=== PATIENT | female | born 1955 | race African-American/Black ===

== ENCOUNTER 2017-04-27 13:38 | Emergency (ER) | payer SELFPAY ==
[2017-04-27 13:44] VITALS: BP 141/86; PULSE 84; TEMP 97.9; BMI 35.6
[2017-04-27] MEDS ORDERED: ALBUTEROL SO4 2.5/IPRATROPIUM 0.5 INH SOL 3 ML VIAL.NEB. NEB ONE ×2 (14:43→14:49)
[2017-04-27] MEDS ORDERED: predniSONE 20 MG TABLET (UD) PO ONE (14:43)
[2017-04-27] MEDS ORDERED: predniSONE 20 MG TABLET (UD) ONE (14:49)
--- NOTE | 2017-04-27 15:06 | PDOC ---
History of Present Illness - General Chief Complaint: Cold Symptoms Stated Complaint: CHEST PAIN WHEN COUGH SINCE SEPT Time Seen by Provider: 04/27/17 14:16 History Source: Patient Exam Limitations: No Limitations - History of Present Illness Initial Comments: 04/27/17 15:00 Patient came with complaints of persistent cough for the past 3 months. States had demolition of her bathroom due to mold and since that time has been coughing. Denies phlegm production but feels some shortness of breath and some wheezing. Has used [id number] medications and home remedies with minimal resolved. Patient states does not have insurance therefore has not sought any medical attention. Denies fever, denies any headache earache or sore throat. Has no history of asthma. Quit smoking 25 years ago. No one else in the house is ill. And progressively worsening as she has been coughing for such a long period of time. Timing/Duration: reports: getting worse Severity: reports: mild, moderate Associated Symptoms: reports: facial pain, fever/chills, nasal congestion Past History - Travel Traveled outside of the country in the last 30 days: No Close contact w/someone who was outside of country & ill: No - Past Medical History Allergies/Adverse Reactions: Allergies Allergy/AdvReac Type Severity Reaction Status Date / Time No Known Allergies Allergy Verified 04/27/17 13:43 Home Medications: Ambulatory Orders Albuterol Sulfate [Proair Respiclick] 90 mcg IH Q6H PRN #1 aer.pow.ba 04/27/17 Prednisone [Deltasone -] 20 mg PO BID #8 tablet 04/27/17 COPD: No Liver Disease: Yes (HEP C) - Surgical History Abdominal Surgery: Yes (TUMORS FROM COLON) - Suicide/Smoking/Psychosocial Hx Smoking History: Never smoked Information on smoking cessation initiated: No Hx Alcohol Use: No Drug/Substance Use Hx: No Substance Use Type: None Review of Systems - Review of Systems Able to Perform ROS?: Yes Is the patient limited Ethiopian proficient: Yes Constitutional: Yes: Symptoms Reported, See HPI, Malaise HEENTM: Yes: See HPI. No: Symptoms Reported, Throat Swelling Respiratory: Yes: Symptoms reported, See HPI, Cough, Shortness of Breath, Wheezing ABD/GI: Yes: See HPI. No: Symptoms Reported Musculoskeletal: Yes: Symptoms Reported Neurological: Yes: See HPI. No: Symptoms reported, Headache All Other Systems: Reviewed and Negative *Physical Exam - Vital Signs Last Vital Signs Temp Pulse Resp BP Pulse Ox 97.9 F 84 18 141/86 97 04/27/17 13:40 04/27/17 13:40 04/27/17 13:40 04/27/17 13:40 04/27/17 13:40 - Physical Exam General Appearance: Yes: Nourished, Appropriately Dressed, Apparent Distress, Mild Distress HEENT: positive: DESMOND, TMs Normal, Pharynx Normal Neck: positive: Supple. negative: Tender Respiratory/Chest: positive: Wheezing (coarse insp and exp BS ). negative: Chest Tender, Lungs Clear, Normal Breath Sounds, Respiratory Distress Cardiovascular: positive: Regular Rhythm Gastrointestinal/Abdominal: positive: Soft. negative: Normal Bowel Sounds, Tender Extremity: positive: Normal Capillary Refill, Normal Inspection Integumentary: positive: Normal Color, Dry, Warm, Pale Neurologic: positive: camp recreation specialist II-XII NML intact, Fully Oriented, Alert, Normal Mood/ Affect, Normal Response, Motor Strength / ED Treatment Course - Medications Given in the ED: ED Medications Discontinued Medications Generic Name Dose Route Start Last Admin Trade Name Freq PRN Reason Stop Dose Admin Albuterol/Ipratropium 1 amp 04/27/17 14:43 04/27/17 14:51 Duoneb - NEB 04/27/17 14:44 1 amp ONCE ONE Administration Prednisone 60 mg 04/27/17 14:43 04/27/17 14:51 Deltasone - PO 04/27/17 14:44 60 mg ONCE ONE Administration Progress Note - Progress Note Progress Note: Reactive airway disease, probably environmental from home. Much improved after 1 DuoNeb and prednisone. We'll continue and have follow-up with PMD *DC/Admit/Observation/Transfer Diagnosis at time of Disposition: Reactive airway disease with wheezing Qualifiers: Asthma severity: mild Asthma persistence: intermittent Asthma complication type : uncomplicated Qualified Code(s): J45.20 - Mild intermittent asthma, uncomplicated - Discharge Dispostion Disposition: HOME Condition at time of disposition: Stable Admit: No - Prescriptions Prescriptions: Albuterol Sulfate [Proair Respiclick] 90 mcg IH Q6H PRN #1 aer.pow.ba PRN Reason: Wheezing Prednisone [Deltasone -] 20 mg PO BID #8 tablet - Referrals Referrals: [facility] [Provider Group] - Patient Instructions Printed Discharge Instructions: DI for Reactive Airway Disease-Adult Additional Instructions: Rest, drink lots of fluids: Teas, water, soups, Pedialyte Saltwater gargles Steamy showers/seem to face break up mucus Avoid contact with others until fevers and cough resolved Lots of handwashing and good hygiene Continue [id number] medications for symptomatic relief Tylenol or Motrin for fever and pain Continue albuterol nebulizers every 4-6 hours for the next 2 days then as needed for continued cough Prednisone as directed until completed Consider antihistamines daily Have bathroom evaluated for mold and other allergens Followup with private physician in one to 2 days Return to emergency department / pediatric hospital for worsened symptoms, fevers, dehydration - Post Discharge Activity
--- NOTE | 2017-05-13 13:26 | EKG ---
Test Reason : Blood Pressure : / mmHG Vent. Rate : 086 BPM Atrial Rate : 086 BPM P-R Int : 144 ms QRS Dur : 066 ms QT Int : 344 ms P-R-T Axes : 073 023 041 degrees QTc Int : 411 ms NORMAL SINUS RHYTHM NORMAL ECG WHEN COMPARED WITH ECG OF 02-APR-2011 11:49, NO SIGNIFICANT CHANGE WAS FOUND Confirmed by BRENNON THOMAS MD ([id number]) on 05/13/2017 1:25:39 PM Referred By: Confirmed By:BRENNON THOMAS MD
== END 2017-04-27 15:22 | disposition home or self-care (01) ==
LOC: JERFT 13:38
PROC: 3E0F7GC Introduction of Other Therapeutic Substance into Respiratory Tract, Via Natural or Artificial Opening (ICD-10-PCS; principal; 2017-04-27)
DX: J45.20 Mild intermittent asthma, uncomplicated (principal)
CPT/HCPCS: 93005; 93010; 99281-25

== ENCOUNTER 2019-06-19 03:57 | Emergency (ER) | payer OTHER ==
[2019-06-19] MEDS ORDERED: ALBUTEROL SO4 2.5/IPRATROPIUM 0.5 INH SOL 3 ML VIAL.NEB. NEB ONE ×2 (05:07→05:20)
[2019-06-19 05:30] VITALS: BMI 35.9
--- NOTE | 2019-06-19 05:59 | PDOC ---
History of Present Illness - General Chief Complaint: Cold Symptoms Stated Complaint: SOB/SINUS CONGESTION Time Seen by Provider: 06/19/19 04:35 - History of Present Illness Initial Comments: HPI: 63yo F with no reported PMH presenting with shortness of breath. Patient states she has had congestion for the past month. Despite being evaluated at two urgent care visits, she continues to have no improvement in her symptoms. Patient has tried flonase, sudafed, Tavares's, and nyquil- none of which help. The only thing that helps her congestion is the mist from a hot shower, but this effect is short-lived. Patient reports that she is unable to lay flat due to her congestion and also complains of chest pressure from her difficulty breathing. Was given a course of Augmentin last week of which she only took three days. No fevers, but endorses chills. PCP: Dr. Wallace ROS: Constitutional: no fever, +chills HEENT: no throat pain, no dysphagia Cardiovascular: +chest pain, no palpitations Respiratory: +cough, +shortness of breath Gastrointestinal: no abdominal pain, no nausea Genitourinary: no dysuria, no hematuria Musculoskeletal: no myalgia, no arthralgia Skin: no rash, no itching Neurologic: no headache, no weakness Psych: no agitation, no anxiety PE: General: Awake, alert, and fully oriented, in no acute distress Head: No signs of trauma Eyes: EOMI, sclera anicteric ENT: Moist mucus membranes, runny nose Neck: Normal ROM, supple Lungs: Lungs clear, Normal breath sounds; upper airway congestion Cardio: Regular rhythm, S1 and S2 present Abdomen: Soft, nontender Extremities: Normal range of motion, Distal pulses present, No calf tenderness SKIN: Warm, Dry, normal turgor Neurologic: Cranial nerves II through XII grossly intact. Normal speech ED Course/MDM: DDX including but not limited to sinusitis, bacterial rhinosinusitis, URI, influenza, ACS, PE, PNA, anemia, metabolic derangement Presentation consistent with viral vs. allergic sinusitis Duoneb Though I have low suspicion for an acute cardiac process, we will obtain basic labs and EKG 06/19/19 05:59 EKG: rate 93, Qtc 450, NSR Pending labs and CXR Patient signed out to Dr. Capone and day team 06/19/19 07:19 Past History - Past Medical History Allergies/Adverse Reactions: Allergies Allergy/AdvReac Type Severity Reaction Status Date / Time No Known Allergies Allergy Verified 06/19/19 04:04 Home Medications: Ambulatory Orders Albuterol Sulfate [Proair Respiclick] 90 mcg IH Q6H PRN #1 aer.pow.ba 04/27/17 predniSONE [Deltasone -] 20 mg PO BID #8 tablet 04/27/17 Guaifenesin [Mucinex -] 600 mg PO BID PRN #14 tablet.er 06/19/19 Levofloxacin [Levaquin] 750 mg PO DAILY #7 tablet 06/19/19 Pseudoephedrine HCl [Sudafed -] 60 mg PO TID #21 tablet 06/19/19 COPD: No Liver Disease: Yes (HEP C) - Surgical History Abdominal Surgery: Yes (TUMORS FROM COLON) - Psycho Social/Smoking Cessation Hx Smoking History: Never smoked Hx Alcohol Use: No Drug/Substance Use Hx: No Substance Use Type: None *Physical Exam - Vital Signs Last Vital Signs Temp Pulse Resp BP Pulse Ox 98.3 F 95 H 20 158/114 H 97 06/19/19 04:15 06/19/19 04:15 06/19/19 04:15 06/19/19 04:15 06/19/19 04:15 ED Treatment Course - LABORATORY CBC & Chemistry Diagram: 06/19/19 06:30 06/19/19 06:30 - Medications Given in the ED: ED Medications Discontinued Medications Generic Name Dose Route Start Last Admin Trade Name Freq PRN Reason Stop Dose Admin Albuterol/Ipratropium 1 amp 06/19/19 05:07 06/19/19 05:29 Duoneb - NEB 06/19/19 05:08 1 amp ONCE ONE Administration Discharge - Discharge Information Problems reviewed: Yes Clinical Impression/Diagnosis: Sinusitis Qualifiers: Sinusitis location: unspecified location Chronicity: acute Recurrence: non- recurrent Qualified Code(s): J01.90 - Acute sinusitis, unspecified - Additional Discharge Information Prescriptions: Guaifenesin [Mucinex -] 600 mg PO BID PRN #14 tablet.er PRN Reason: Nasal Congestion Levofloxacin [Levaquin] 750 mg PO DAILY #7 tablet Pseudoephedrine HCl [Sudafed -] 60 mg PO TID #21 tablet - Follow up/Referral - Patient Discharge Instructions Patient Printed Discharge Instructions: DI for Sinusitis Additional Instructions: You were seen in the emergency department for congestion and shortness of breath. Blood work, EKG, and Xray were normal. You received a breathing treatment. Follow-up with your primary care provider within 72 hours to discuss this ED visit and to further evaluate your symptoms. Call today or tomorrow morning and make an appointment. Your workup is not complete until you do so. We sent prescriptions to your pharmacy. Take as instructed. You can also use an ndci-zry-wuyebry netipot to help with your sinuses. Immediate medical attention is required if: you pass out, have any chest pain, shortness of breath, severe headaches, changes in vision, focal numbness or weakness, any severe abdominal pain, any black tarry stool, or any new or concerning symptoms. If you think you are having an emergency, call for emergency medical services or present to the emergency department right away. - Post Discharge Activity
--- NOTE | 2019-06-19 07:01 | PDOC ---
*Physical Exam - Vital Signs Last Vital Signs Temp Pulse Resp BP Pulse Ox 98.3 F 95 H 20 158/114 H 97 06/19/19 04:15 06/19/19 04:15 06/19/19 04:15 06/19/19 04:15 06/19/19 04:15 ED Treatment Course - LABORATORY CBC & Chemistry Diagram: 06/19/19 06:30 06/19/19 06:30 - Medications Given in the ED: ED Medications Discontinued Medications Generic Name Dose Route Start Last Admin Trade Name Freq PRN Reason Stop Dose Admin Albuterol/Ipratropium 1 amp 06/19/19 05:07 06/19/19 05:29 Duoneb - NEB 06/19/19 05:08 1 amp ONCE ONE Administration Medical Decision Making - Medical Decision Making 06/19/19 07:00 Pt received on s/o from Dr. Blake. 63F presenting with shortness of breath. Likely upper airway. F/u labs, ekg, cxr. Given augmentin at urgent care. Plan to d/c home with levaquin and mucinex for sinusitis pending work up. 06/19/19 08:34 EKG shows NSR, 93 bpm, no ST elevation, QTc 450. 06/19/19 08:35 Labs reviewed. Laboratory Last Values WBC 7.3 K/mm3 (4.0-10.0) 06/19/19 06:30 RBC 5.18 M/mm3 (3.60-5.2) 06/19/19 06:30 Hgb 14.1 GM/dL (10.7-15.3) 06/19/19 06:30 Hct 42.4 % (32.4-45.2) 06/19/19 06:30 MCV 82.0 fl (80-96) 06/19/19 06:30 MCH 27.3 pg (25.7-33.7) 06/19/19 06:30 MCHC 33.3 g/dl (32.0-36.0) 06/19/19 06:30 RDW 15.0 % (11.6-15.6) 06/19/19 06:30 Plt Count 265 K/MM3 (134-434) 06/19/19 06:30 MPV 8.6 fl (7.5-11.1) 06/19/19 06:30 Absolute Neuts (auto) 4.2 K/mm3 (1.5-8.0) 06/19/19 06:30 Neutrophils % 57.3 % (42.8-82.8) 06/19/19 06:30 Lymphocytes % 30.9 % (8-40) 06/19/19 06:30 Monocytes % 7.0 % (3.8-10.2) 06/19/19 06:30 Eosinophils % 4.5 % (0-4.5) 06/19/19 06:30 Basophils % 0.3 % (0-2.0) 06/19/19 06:30 Nucleated RBC % 0 % (0-0) 06/19/19 06:30 Sodium 141 mmol/L (136-145) 06/19/19 06:30 Potassium 4.0 mmol/L (3.5-5.1) 06/19/19 06:30 Chloride 104 mmol/L (98-107) 06/19/19 06:30 Carbon Dioxide 31 mmol/L (21-32) 06/19/19 06:30 Anion Gap 6 MMOL/L (8-16) L 06/19/19 06:30 BUN 10.3 mg/dL (7-18) 06/19/19 06:30 Creatinine 0.8 mg/dL (0.55-1.3) 06/19/19 06:30 Est GFR (CKD-EPI)AfAm 90.30 06/19/19 06:30 Est GFR (CKD-EPI)NonAf 77.91 06/19/19 06:30 Random Glucose 117 mg/dL (74-106) H 06/19/19 06:30 Calcium 8.9 mg/dL (8.5-10.1) 06/19/19 06:30 Total Bilirubin 0.4 mg/dL (0.2-1) 06/19/19 06:30 AST 37 U/L (15-37) 06/19/19 06:30 ALT 38 U/L (13-61) 06/19/19 06:30 Alkaline Phosphatase 91 U/L (45-117) 06/19/19 06:30 Creatine Kinase 170 U/L (26-192) 06/19/19 06:30 Creatine Kinase Index 1.1 % (0.0-5.0) 06/19/19 06:30 CK-MB (CK-2) 1.9 ng/mL (0.5-3.6) 06/19/19 06:30 Troponin I 0.03 ng/ml (0.00-0.05) 06/19/19 06:30 Total Protein 8.6 g/dl (6.4-8.2) H 06/19/19 06:30 Albumin 4.1 g/dl (3.4-5.0) 06/19/19 06:30 Influenza A (Rapid) Negative (Negative) 06/19/19 06:30 Influenza B (Rapid) Negative (Negative) 06/19/19 06:30 06/19/19 08:35 CXR negative. 06/19/19 09:02 Pt reassessed. Lung ott CTAB. Ambulating comfortably. Reports that shortness of breath has resolved but continues to have mild cough and post nasal drip. Plan to d/c home with PCP f/u. All questions answered. Return precautions given. Pt verbalized understanding and agreement with plan. Discharge - Discharge Information Problems reviewed: Yes Clinical Impression/Diagnosis: Sinusitis Qualifiers: Sinusitis location: unspecified location Chronicity: acute Recurrence: non- recurrent Qualified Code(s): J01.90 - Acute sinusitis, unspecified Condition: Stable Disposition: HOME - Admission No - Additional Discharge Information Prescriptions: Benzonatate [Tessalon Pearls -] 100 mg PO TID 7 Days #21 capsule Guaifenesin [Mucinex -] 600 mg PO BID PRN #14 tablet.er PRN Reason: Nasal Congestion Levofloxacin [Levaquin] 750 mg PO DAILY #7 tablet Pseudoephedrine HCl [Sudafed -] 60 mg PO TID #21 tablet - Follow up/Referral Referrals: Johnson Baer MD [Staff Physician] - - Patient Discharge Instructions Patient Printed Discharge Instructions: DI for Sinusitis Additional Instructions: You were seen in the emergency department for congestion and shortness of breath. Blood work, EKG, and Xray were normal. You received a breathing treatment. Follow-up with your primary care provider within 72 hours to discuss this ED visit and to further evaluate your symptoms. Call today or tomorrow morning and make an appointment. Your workup is not complete until you do so. We sent prescriptions to your pharmacy. Take as instructed. You can also use an [id number] netipot to help with your sinuses. Immediate medical attention is required if: you pass out, have any chest pain, shortness of breath, severe headaches, changes in vision, focal numbness or weakness, any severe abdominal pain, any black tarry stool, or any new or concerning symptoms. If you think you are having an emergency, call for emergency medical services or present to the emergency department right away. - Post Discharge Activity
[2019-06-19] MEDS ORDERED: PSEUDOEPHEDRINE HCL 60 MG TABLET PO ONE (07:20)
[2019-06-19] MEDS ORDERED: PSEUDOEPHEDRINE HCL 60 MG TABLET ONE (07:23)
--- NOTE | 2019-06-19 07:26 | PDOC ---
Attending Attestation - Resident Resident Name: Jerilyn Blake - ED Attending Attestation I have performed the following: I have examined & evaluated the patient, The case was reviewed & discussed with the resident, I agree w/resident's findings & plan - HPI HPI: 06/19/19 07:25 congestion and stuffy nose with in abiity to breathe x 1 month. No PMHx and she came last night as she was unable to breathe thru her nouth or her nose and she got really scared. 06/19/19 20:09 Pt is afebrile here and appears well. She comes with a bag filled with OTC meds that are not helping Pt [place] her god-dogs. states that she has a puppy allergy and that she loves those dogs/. Perhaps pt has allergy induced congestion. She is back at home where there are no dogs however. - Physicial Exam PE: 06/19/19 20:11 Agree with resident exam Pt is very congested.. Nasal congesiton. Heart [id number] Lungs CTA B abd soft NT ND neuro intact - Medical Decision Making 06/19/19 20:12 Pt will be signed out to the day ER team. I will rx with pseudoephedrine, as pt has been taking only phenylephrine, which is pretty ineffective.
[2019-06-19 07:34] LABS: BASO % 0.3 % (0-2.0); EOS % 4.5 % (0-4.5); HEMATOCRIT 42.4 % (32.4-45.2); HEMOGLOBIN 14.1 GM/dL (10.7-15.3); LYMPH % 30.9 % (8-40); MCH 27.3 pg (25.7-33.7); MCHC 33.3 g/dl (32.0-36.0); MEAN PLT VOLUME 8.6 fl (7.5-11.1); NEUT % 57.3 % (42.8-82.8); PLATELET COUNT 265 K/MM3 (134-434); RBC 5.18 M/mm3 (3.60-5.2); WHITE BLOOD COUNT 7.3 K/mm3 (4.0-10.0)
[2019-06-19 08:02] LABS: ALBUMIN 4.1 g/dl (3.4-5.0); BILIRUBIN,TOTAL 0.4 mg/dL (0.2-1); BLOOD UREA NITROGEN 10.3 mg/dL (7-18); CALCIUM 8.9 mg/dL (8.5-10.1); CREATININE 0.8 mg/dL (0.55-1.3); TOT PROT 8.6 g/dl (6.4-8.2)
[2019-06-19 09:33] VITALS: BP 192/110; PULSE 98; TEMP 98.5
--- NOTE | 2019-06-19 14:11 | EKG ---
Test Reason : Blood Pressure : / mmHG Vent. Rate : 093 BPM Atrial Rate : 093 BPM P-R Int : 142 ms QRS Dur : 066 ms QT Int : 362 ms P-R-T Axes : 075 040 040 degrees QTc Int : 450 ms NORMAL SINUS RHYTHM NORMAL ECG Confirmed by MD PATTERSON GREGORY ([id number]) on 06/19/2019 2:11:49 PM Referred By: Confirmed By:MONICA PATTERSON MD
== END 2019-06-19 09:34 | disposition home or self-care (01) ==
LOC: JER 03:57
PROC: 3E0F7GC Introduction of Other Therapeutic Substance into Respiratory Tract, Via Natural or Artificial Opening (ICD-10-PCS; principal; 2019-06-19)
DX: J01.90 Acute sinusitis, unspecified (principal)
CPT/HCPCS: 36415; 71046-TC-FY; 80053; 82550; 82553; 84484; 85025; 87804; 93005; 93010; 94640; 99285-25

== ENCOUNTER 2022-03-12 17:57 | Emergency (ER) | payer OTHER ==
[2022-03-12 18:57] VITALS: BP 150/93; PULSE 89; RESP 18; TEMP 98.8; BMI 34.7
[2022-03-12] MEDS ORDERED: predniSONE 20 MG TABLET (UD) PO ONE (20:04)
[2022-03-12] MEDS ORDERED: ALBUTEROL SO4 2.5/IPRATROPIUM 0.5 INH SOL 3 ML VIAL.NEB. NEB ONE ×2 (20:04→20:19)
[2022-03-12] MEDS ORDERED: IBUPROFEN 600 MG TABLET (FP) PO ONE (20:04)
[2022-03-12] MEDS ORDERED: ACETAMINOPHEN 500 MG TABLET (FP) PO ONE (20:04)
[2022-03-12] MEDS ORDERED: ACETAMINOPHEN 500 MG TABLET (FP) ONE (20:20)
[2022-03-12] MEDS ORDERED: predniSONE 20 MG TABLET (UD) ONE (20:20)
== END 2022-03-12 21:19 | disposition home or self-care (01) ==
LOC: JER 17:57
PROC: 3E0F7GC Introduction of Other Therapeutic Substance into Respiratory Tract, Via Natural or Artificial Opening (ICD-10-PCS; principal; 2022-03-12)
DX: U07.1 COVID-19 (principal); J20.8 Acute bronchitis due to other specified organisms
CPT/HCPCS: 0241U-QW; 71046-TC-FY; 94640; 99284-25

== ENCOUNTER 2024-02-14 15:29 | Emergency (ER) | payer OTHER ==
[2024-02-14 15:40] VITALS: BP 143/81; PULSE 92; RESP 18; TEMP 98.8; BMI 35.9
[2024-02-14] MEDS ORDERED: ACETAMINOPHEN 325 MG TABLET (FP) ONE (15:55)
[2024-02-14] MEDS ORDERED: KETOROLAC TROMETHAMINE 30 MG/1 ML VIAL ONE (15:55)
[2024-02-14] MEDS: ACETAMINOPHEN 650 MG/20.3 ML ORAL SOLUTION (CUPS) PO ONE (15:59)
[2024-02-14] MEDS: KETOROLAC TROMETHAMINE 30 MG/1 ML VIAL IM ONE (15:59)
== END 2024-02-14 18:06 | disposition home or self-care (01) ==
LOC: JERFT 15:29 → JER 15:29 → JERFT 18:06
PROC: 3E0233Z Introduction of Anti-inflammatory into Muscle, Percutaneous Approach (ICD-10-PCS; principal; 2024-02-14)
DX: S93.602A Unspecified sprain of left foot, initial encounter (principal); W10.9XXA Fall (on) (from) unspecified stairs and steps, initial encounter; X50.1XXA Overexertion from prolonged static or awkward postures, initial encounter
CPT/HCPCS: 73610-TC-LT-FY; 73630-TC-LT; 99284-25